=== PATIENT | male | born 1985 | race Caucasian/White ===

== ENCOUNTER 2018-12-06 17:09 | Observation (INO) | payer OTHER, SELFPAY ==
[2018-12-06] VITALS (8 sets, daily range): BP systolic 106–134; BP diastolic 54–78; PULSE 61–81; RESP 9–25; TEMP 36.3–36.4; O2SAT 96–100; BMI 29.8; BMI 30.5
--- NOTE | 2018-12-06 17:36 | DI.CT.S_ITS ---
PROCEDURE: CT ANGIO HEAD AND NECK INDICATIONS: stroke TECHNIQUE: Pre-contrast 4.5 mm thick sections acquired from the foramen magnum to the vertex. After the administration of intravenous contrast, 1 mm thick sections acquired from the aortic arch through the Darragh of Zheng. Post-contrast 4.5 mm thick sections then re-acquired from the foramen magnum to the vertex. 3-dimensional pzjpvbg-efirhmdhi-kidhzskzrm (MIP) and/or volume rendering reformats were acquired of the central intracranial vasculature and neck separately. COMPARISON: None. FINDINGS: Image quality: Excellent. BRAIN: CSF spaces: Ventricles are normal in size and shape. Basal cisterns are patent. No extra-axial fluid collections. Brain: No midline shift. No intracranial bleeds or masses. Cole-white matter interface appears intact. Skull and face: Calvarium and facial bones appear intact, without suspicious lesions. Orbits appear normal. Sinuses: Sinuses and mastoids are clear. HEAD CT ANGIOGRAPHY: No stenoses, aneurysms, or occlusions. No focal filling defects. NECK CT ANGIOGRAPHY: Carotid system: The great vessels demonstrate a conventional anatomy as they arise from the aortic arch. The origins of the common carotid arteries appear patent. The common carotid arteries demonstrate normal caliber and courses. The bifurcation regions are both widely patent. The internal carotid arteries demonstrate normal calibers and courses. Posterior circulation: The origins of the vertebral arteries both appear widely patent. The more superior extracranial portions of both vertebral arteries also demonstrate normal courses and calibers. They join to form a normal appearing basilar artery. Soft tissues: Visualized neck soft tissues demonstrate no suspicious abnormalities. Bones: No suspicious bony lesions. Visualized cervical spine appears normally aligned. IMPRESSION: 1. No evidence acute stroke, hemorrhage, or mass. Unremarkable head CT with and without contrast. 2. Unremarkable CTA head. 3. Unremarkable CTA neck. Comment: Findings were discussed with Dr. Biswas at the time of study dictation on 12/06/18 at 1826 hrs. Any quantitative measurements of stenosis were performed using NASCET criteria. Dictated by: Farooq Cross M.D. on 12/06/2018 at 18:21 Approved by: Farooq Cross M.D. on 12/06/2018 at 18:27
--- NOTE | 2018-12-06 17:36 | DI.CT.S_ITS ---
PROCEDURE: CT HEAD/BRAIN WO CON INDICATIONS: stroke TECHNIQUE: Noncontrast 4.5 mm thick angled axial sections acquired from the foramen magnum to the vertex, with coronal and sagittal reformats. For radiation dose reduction, the following was used: automated exposure control, adjustment of mA and/or kV according to patient size. COMPARISON: None. FINDINGS: Image quality: Excellent. CSF spaces: Basal cisterns are patent. No extra-axial fluid collections. Ventricles are normal in size and shape. Brain: No midline shift. No intracranial masses or hemorrhage. Cole-white matter interface is normal. Skull and face: Calvarium and visualized facial bones are intact, without suspicious lesions. Sinuses: Visualized sinuses and mastoids are clear. IMPRESSION: Unremarkable head CT with no evidence of acute stroke, hemorrhage, or mass. Comment: Findings were discussed with Dr. Biswas at the time of study dictation on 12/06/18 at 1959 hrs.. Dictated by: Farooq Cross M.D. on 12/06/2018 at 17:58 Approved by: Farooq Cross M.D. on 12/06/2018 at 18:00
[2018-12-06 17:41] LABS: Add Manual Diff / Slide Review NO; Basophils Absolute Auto 0 /uL (0-100); Basophils Percent Auto 0.6 % (0-2); Eosinophils Absolute Auto 100 /uL (0-450); Eosinophils Percent Auto 0.9 % (2-4); Hematocrit 42.8 % (41-53); Hemoglobin 14.5 g/dL (13.5-17.5); Lymphocytes Absolute Auto 2400 /uL (1100-4500); Lymphocytes Percent Auto 30.4 % (25-40); Mean Corpuscular HGB Conc 33.9 % (30-36); Mean Corpuscular Hemoglobin 29.7 PG (26-34); Mean Corpuscular Volume 87.6 fL (80-100); Monocytes Absolute Auto 800 /uL (0-900); Monocytes Percent Auto 10.3 % (3-14); Neutrophils Absolute Auto 4600 /uL (1500-7000); Neutrophils Percent Auto 57.8 % (50-75); Platelet Count 267 X10^3/uL (150-400); Red Blood Cell Count 4.89 X10^6/uL (4.5-5.9); Red Cell Distribution Width 13.5 % (11.6-14.8)
--- NOTE | 2018-12-06 17:43 | PC.NURSE ---
pt to ct with stroke RN on stretcher
--- NOTE | 2018-12-06 17:45 | PC.NURSE ---
Patient reports neurologic symptoms over the last two weeks including paresthesias. Today at 1400 began having right facial and arm numbness/weakness and difficulty with speech.The arm and speech have resolved however patient still has facial droop to right side of face and numbness to right side of face. He reports multiple cases of family history of unknown neurological/neuromuscular disorders. States one family member has some parkisonian like symptoms and can no longer walk, no diagnosis yet. States he has two family members with major balance issues as well. While shirt was removed I noticed patient had some odd muscle twitching/fasciculations to torso area. Does not appear like shivering and is involuntary in nature. He states that's been happening too the last few weeks. Also reports now he has a head to right temporal lobe, headaches are not common for him. Recently started on gabapentin.
--- NOTE | 2018-12-06 17:51 | PC.NURSE ---
pt back from CT
[2018-12-06 17:52] LABS: Alanine Aminotransferase 40 IU/L (21-72); Albumin 4.7 g/dL (3.5-5.0); Albumin Globulin Ratio 1.6 (1.0-2.8); Alkaline Phosphatase 51 U/L (38-126); Aspartate Aminotransferase 36 IU/L (17-59); BUN Creatinine Ratio 16.7 (6-22); Bilirubin Total 0.5 mg/dL (0.2-1.3); Blood Urea Nitrogen 15 mg/dL (9-20); Calcium 9.4 mg/dL (8.4-10.2); Carbon Dioxide 27 mmol/L (22-32); Chloride 102 mmol/L (98-107); Estimated Glomerular Filt Rate > 60.0 mL/min (>60); Globulin 2.9 g/dL (1.7-4.1); Glucose 82 mg/dL (70-100); HEMOLYSIS < 15 (0-50); Potassium 3.6 mmol/L (3.4-5.1); Sodium 141 mmol/L (137-145); Total Protein 7.6 g/dL (6.3-8.2)
--- NOTE | 2018-12-06 18:20 | DI.MRI.S_ITS ---
PROCEDURE: MR HEAD/BRAIN WO CON INDICATIONS: stroke symptoms TECHNIQUE: Noncontrast axial T1 spin echo, axial T2 fast spin echo, sagittal and axial FLAIR, coronal T2 fast spin echo, axial gradient echo, axial diffusion and ADC through the brain. COMPARISON: [facility], CT, CT HEAD/BRAIN WO CON, 12/06/2018, 17:37. FINDINGS: Image quality: Excellent. CSF Spaces: Basal cisterns are patent. No extra-axial fluid collections. Ventricles are normal in size and shape. Brain: No intracranial masses or hemorrhage. Cole/white matter interface is normal. Brainstem appears normal. Diffusion-weighted images demonstrate no acute ischemic insult. No chronic ischemic insults. Normal intravascular flow voids are present. Skull and face: Calvarium has normal marrow signal. Orbits appear normal. Sinuses: Sinuses and mastoids are clear. IMPRESSION: Negative brain MRI. No evidence of acute stroke, hemorrhage, or mass. Normal appearance of brain parenchyma. Dictated by: Farooq Cross M.D. on 12/06/2018 at 18:59 Approved by: Farooq Cross M.D. on 12/06/2018 at 19:01
[2018-12-06] MEDS: SODIUM CHLORIDE 0.9% 1,000 ML 1000 ML IV (18:23)
--- NOTE | 2018-12-06 18:39 | ED.NEUROSD ---
HPI - Neuro Symptoms/Deficit <Sarahi Biswas MD - Last Filed: 12/06/18 18:48> General Chief Complaint: Neuro Symptoms/Deficit Stated Complaint: RT SIDED FACIAL NUMBNESS Time Seen by Provider: 12/06/18 17:28 Source: patient Mode of arrival: ambulatory Limitations: no limitations History of Present Illness HPI Narrative: Patient comes emergency department via private vehicle after having sudden onset of right facial droop, numbness, and dysarthria around 1400 today. Patient states his symptoms have improved a bit since onset. He was seen at his primary care physician's office on the [facility], and his physician sent him to the emergency department for further evaluation. Patient states that he has been having right arm numbness and weakness for about the last 3 weeks and that this seems to be worsening. He states that he has never had any symptoms like this before. The patient is otherwise healthy. He has a family history of various neurologic disorders, including a maternal uncle with a Parkinson's like syndrome, and another maternal uncle who of some sort of neurologic condition in his 50s. The patient is not aware of any CVAs or MIs in the family at the ages of 20s or 30s. Patient denies any history of smoking. He states that he does not have diabetes or hypertension. No visual changes. No new weakness in the arms or legs that started today. No difficulty with gait. No vertigo. No nausea or vomiting. Patient has a mild headache in his temples. No recent head injury. No anticoagulation. No other complaints at this time. On Anticoagulants: No Related Data Home Medications Medication Instructions Recorded Confirmed Neurontin 300 mg PO ONCE HS 12/06/18 12/06/18 meloxicam 15 mg PO QAM 12/06/18 12/06/18 Allergies Allergy/AdvReac Type Severity Reaction Status Date / Time No Known Drug Allergies Allergy Verified 12/06/18 17:26 Review of Systems <Sarahi Biswas MD - Last Filed: 12/06/18 18:48> Constitutional Denies chills, Denies fever(s), Denies lethargy and Reports weakness (Right arm, right face) Eyes Denies change in vision, Denies eye discharge, Denies irritation and Denies loss of vision ENT Ears, Nose, Mouth, and Throat: Denies change in voice, Denies neck pain and Denies sore throat Cardiovascular Denies chest pain, Denies irregular heart rhythm, Denies lightheadedness, Denies palpitations, Denies dyspnea, Denies dyspnea on exertion and Denies orthopnea Respiratory Denies cough, Denies dyspnea, Denies dyspnea on exertion and Denies wheezing Gastrointestinal Gastrointestinal: Denies abdominal pain, Denies change in bowel habits, Denies diarrhea, Denies nausea and Denies vomiting Genitourinary Denies hematuria, Denies flank pain, Denies urinary incontinence and Denies urinary urgency Musculoskeletal Denies neck pain Integumentary/Breasts Denies pruritus, Denies erythema, Denies rash and Denies wounds Neurologic Denies confusion, Denies loss of vision, Reports sensory deficit (Right she) and Reports weakness (Right arm, right face) Psychiatric Denies anxiety, Denies confusion, Denies depression, Denies homicidal ideation and Denies suicidal ideation Endocrine Denies palpitations Hematologic/Lymphatic Denies easy bruising Allergic/Immunologic Denies wheezing PFSH <Sarahi Biswas MD - Last Filed: 12/06/18 18:48> Medical History (Updated 12/06/18 @ 23:18 by ROGERIO Gonzalez) Alcohol use (Acute) History of childhood obesity (Chronic) Nerve sheath tumor (Chronic) Surgical History No pertinent past surgical history (Acute) Family History (Updated 12/06/18 @ 23:20 by ROGERIO Gonzalez) Mother Vision abnormalities Grandmother Vision abnormalities Tremor Grandfather Memory deficit Tremor Gait abnormality Social History household members: none Smoking Status: Never smoker alcohol intake: current Family History (Updated 12/06/18 @ 23:20 by ROGERIO Gonzalez) Mother Vision abnormalities Grandmother Vision abnormalities Tremor Grandfather Memory deficit Tremor Gait abnormality Social History household members: none Smoking Status: Never smoker alcohol intake: current Exam <Sarahi Biswas MD - Last Filed: 12/06/18 18:48> Initial Vital Signs Initial Vital Signs: Vital Signs Temperature 97.5 F L 12/06/18 17:17 Pulse Rate 69 12/06/18 17:17 Respiratory Rate 18 12/06/18 17:17 Blood Pressure 126/78 12/06/18 17:17 Pulse Oximetry 100 12/06/18 17:17 Const General: cooperative and well developed Nutritional Appearance: well nourished Orientation: alert, awake, oriented x3 and not confused [facility] Head: normocephalic and atraumatic Ears: external ears normal Nose: external nose normal and No nasal discharge Face and sinus: face symmetric and No dry mucous membranes Mouth: oral mucosae normal and moist mucous membranes Teeth and gingiva: dentition normal Eyes General: appearance normal, both eyes and all related structures Eyelids: eyelids normal Conjunctivae: conjunctivae normal Sclera: sclerae normal Pupils: PERRL EOM: EOM intact bilaterally Neck Neck: normal visual inspection, trachea midline, No lymphadenopathy, No midline deformity and No JVD Lymphatic: No lymphedema Chest Chest: normal inspection of the chest Resp Effort & Inspection: normal respiratory effort, able to speak in complete sentences, no respiratory distress and no use of accessory muscles Auscultation: clear to auscultation bilaterally, no rales, no rhonchi and no wheezes Cardio Rate: regular rate Rhythm: regular rhythm Heart Sounds: no click, no gallops, no murmurs and no rubs Pulses: normal peripheral pulses GI Inspection: non-distended Palpation: soft, no hepatosplenomegaly, No guarding, No pulsatile mass and No tender Auscultation: normal bowel sounds Back/Spine/Pelvis Back: No CVA tenderness Cervical Spine: cervical ROM normal and No pain with cervical ROM Thoracic/Lumbar Spine: thoracic and lumbar spine normal to inspection Skin General: no rashes or lesions noted, No jaundice and No petechiae Neuro General: alert, awake, oriented x3 and gait normal Speech: speech normal Sensory Exam: no sensory deficits noted (Except for right cheek, as noted below.) Other: Cranial nerves 2-12 are intact, with the exception of very mild weakness of the patient's right upper lip. Sensory deficit noted only on the patient's right cheek, with mildly decreased sensation compared to left cheek. Patient has 5-strength in the right upper extremity compared with 5+ strength in the left upper extremity. Extrem General: full ROM, no clubbing, cyanosis or edema, no pedal edema and no calf tenderness Psych Appearance: well kempt Mental Status: mental status grossly normal Attitude: cooperative Thought Content: normal and suicidality Judgment: judgment good <Lux Gordon DO - Last Filed: 12/07/18 02:34> Initial Vital Signs Initial Vital Signs: Vital Signs Temperature 97.5 F L 12/06/18 17:17 Pulse Rate 69 12/06/18 17:17 Respiratory Rate 18 12/06/18 17:17 Blood Pressure 126/78 12/06/18 17:17 Pulse Oximetry 100 12/06/18 17:17 <Lux Gordon DO - Last Filed: 12/07/18 02:34> ABCD2 Age >= 60 years: no Initial BP. Either SBP >= 140 or DBP >= 90.: no Clinical features of the TIA: other symptoms Duration of symptoms: >= 60 minutes History of diabetes: no ABCD2 Score: 2 Course <Sarahi Biswas MD - Last Filed: 12/06/18 18:48> Course Narrative: Patient was evaluated immediately upon arrival in the emergency department by myself as a ?code stroke?. He was found to have an NIH stroke scale score 2 for his mild facial and right upper extremity weakness and his right cheek numbness. He was sent for a CT of the head without contrast, which was negative. His CTA of the head and neck was also unremarkable. An MRI was ordered to further evaluate the patient symptoms. EKG was unremarkable. Labs were also ordered. Patient remained stable throughout his stay in the emergency department up to the time of this dictation. He was signed out to Dr. Gordon at change of shift, pending labs, MRI and final disposition. Orders Ordered: ED Orders 12/06/18 17:36 CT angio head and neck Stat CT head/brain wo con Stat 12/06/18 18:20 MR head/brain wo con Stat 12/06/18 21:42 Consult to Discharge Planning Routine 12/07/18 06:00 EC echo doppler complete Routine Lipid Panel w/ VLDL Calc Routine Acetaminophen (Tylenol) 650 mg PO Q6HR PRN PRN Reason: Fever Aspirin (Aspirin Ec) 81 mg PO DAILY SALOME Discontinued Medications Aspirin (Aspirin Ec) 325 mg PO NOW ONE Stop: 12/06/18 18:50 Last Admin: 12/06/18 19:36 Dose: 325 mg Sodium Chloride (Normal Saline 0.9%) 1,000 mls @ 1,000 mls/hr IV BOLUS ONE Stop: 12/06/18 18:35 Last Infusion: 12/06/18 19:41 Dose: 0 mls/hr Admin: 12/06/18 18:23 Dose: 1,000 mls/hr Vital Signs - 8 hr 12/06/18 18:52 12/06/18 19:30 12/06/18 20:00 Temperature Pulse Rate 61 64 67 Respiratory Rate 25 H 14 18 Blood Pressure Blood Pressure [Right Arm] 114/70 115/74 110/70 Pulse Oximetry 100 100 100 12/06/18 21:00 12/06/18 21:53 12/07/18 00:05 Temperature 97.3 F L 98.5 F Pulse Rate 62 81 53 L Respiratory Rate 19 18 16 Blood Pressure 134/54 L 110/69 Blood Pressure [Right Arm] 106/69 Pulse Oximetry 100 96 100 <Lux Gordon, DO - Last Filed: 12/07/18 02:34> Course Narrative: Patient received in sign-out from Dr. Biswas, I performed an independent history and physical. Patient asymptomatic on my exam with current Stroke Scale of 0. Upon receipt of MRI I contacted [facility] stroke to discuss the symptoms and they quickly recommend observation with a TIA workup including telemetry and an echocardiogram. Patient understands these recommendations and is in agreement with the plan Orders Ordered: ED Orders 12/06/18 17:36 CT angio head and neck Stat CT head/brain wo con Stat 12/06/18 18:20 MR head/brain wo con Stat 12/06/18 21:42 Consult to Discharge Planning Routine 12/07/18 06:00 EC echo doppler complete Routine Lipid Panel w/ VLDL Calc Routine Acetaminophen (Tylenol) 650 mg PO Q6HR PRN PRN Reason: Fever Aspirin (Aspirin Ec) 81 mg PO DAILY SALOME Discontinued Medications Aspirin (Aspirin Ec) 325 mg PO NOW ONE Stop: 12/06/18 18:50 Last Admin: 12/06/18 19:36 Dose: 325 mg Sodium Chloride (Normal Saline 0.9%) 1,000 mls @ 1,000 mls/hr IV BOLUS ONE Stop: 12/06/18 18:35 Last Infusion: 12/06/18 19:41 Dose: 0 mls/hr Admin: 12/06/18 18:23 Dose: 1,000 mls/hr Consultations Consultation #1: Stroke Neurologist at [facility] contacted. History, physical, labs, and imaging discussed. She is quick to recommend observation for TIA workup Consultation #2: hospitalist is happy to accept Vital Signs - 8 hr 12/06/18 18:52 12/06/18 19:30 12/06/18 20:00 Temperature Pulse Rate 61 64 67 Respiratory Rate 25 H 14 18 Blood Pressure Blood Pressure [Right Arm] 114/70 115/74 110/70 Pulse Oximetry 100 100 100 12/06/18 21:00 12/06/18 21:53 12/07/18 00:05 Temperature 97.3 F L 98.5 F Pulse Rate 62 81 53 L Respiratory Rate 19 18 16 Blood Pressure 134/54 L 110/69 Blood Pressure [Right Arm] 106/69 Pulse Oximetry 100 96 100 MDM - Neuro Symptoms/Deficit <Sarahi Biswas MD - Last Filed: 12/06/18 18:48> Lab Data Result diagrams: 12/06/18 17:30 12/06/18 17:30 Lab Results 12/06/18 12/06/18 12/06/18 Range/Units 17:30 17:30 17:30 WBC 8.0 (4.5-11.0) X10^3/uL RBC 4.89 (4.5-5.9) X10^6/uL Hgb 14.5 (13.5-17.5) g/dL Hct 42.8 (41-53) % MCV 87.6 (80-100) fL MCH 29.7 (26-34) PG MCHC 33.9 (30-36) % RDW 13.5 (11.6-14.8) % Plt Count 267 (150-400) X10^3/uL Neut % (Auto) 57.8 (50-75) % Lymph % (Auto) 30.4 (25-40) % [place] % (Auto) 10.3 (3-14) % Eos % (Auto) 0.9 L (2-4) % Baso % (Auto) 0.6 (0-2) % Neut # (Auto) 4600 (8606-0235) /uL Lymph # (Auto) 2400 (6495-4792) /uL [place] # (Auto) 800 (0-900) /uL Eos # (Auto) 100 (0-450) /uL Baso # (Auto) 0 (0-100) /uL Sodium 141 (137-145) mmol/L Potassium 3.6 (3.4-5.1) mmol/L Chloride 102 (98-107) mmol/L Carbon Dioxide 27 (22-32) mmol/L BUN 15 (9-20) mg/dL Creatinine 0.90 (0.66-1.25) mg/dL Estimated GFR > 60.0 (>60) mL/min BUN/Creatinine Ratio 16.7 (6-22) Glucose 82 (70-100) mg/dL Hemoglobin A1c 4.7 (4.0-6.0) % Calcium 9.4 (8.4-10.2) mg/dL Total Bilirubin 0.5 (0.2-1.3) mg/dL AST 36 (17-59) IU/L ALT 40 (21-72) IU/L Alkaline Phosphatase 51 (38-126) U/L Total Protein 7.6 (6.3-8.2) g/dL Albumin 4.7 (3.5-5.0) g/dL Globulin 2.9 (1.7-4.1) g/dL Albumin/Globulin Ratio 1.6 (1.0-2.8) <Lux Gordon, DO - Last Filed: 12/07/18 02:34> Lab Data Lab Results 12/06/18 12/06/18 12/06/18 Range/Units 17:30 17:30 17:30 WBC 8.0 (4.5-11.0) X10^3/uL RBC 4.89 (4.5-5.9) X10^6/uL Hgb 14.5 (13.5-17.5) g/dL Hct 42.8 (41-53) % MCV 87.6 (80-100) fL MCH 29.7 (26-34) PG MCHC 33.9 (30-36) % RDW 13.5 (11.6-14.8) % Plt Count 267 (150-400) X10^3/uL Neut % (Auto) 57.8 (50-75) % Lymph % (Auto) 30.4 (25-40) % [place] % (Auto) 10.3 (3-14) % Eos % (Auto) 0.9 L (2-4) % Baso % (Auto) 0.6 (0-2) % Neut # (Auto) 4600 (9414-2921) /uL Lymph # (Auto) 2400 (5767-4011) /uL [place] # (Auto) 800 (0-900) /uL Eos # (Auto) 100 (0-450) /uL Baso # (Auto) 0 (0-100) /uL Sodium 141 (137-145) mmol/L Potassium 3.6 (3.4-5.1) mmol/L Chloride 102 (98-107) mmol/L Carbon Dioxide 27 (22-32) mmol/L BUN 15 (9-20) mg/dL Creatinine 0.90 (0.66-1.25) mg/dL Estimated GFR > 60.0 (>60) mL/min BUN/Creatinine Ratio 16.7 (6-22) Glucose 82 (70-100) mg/dL Hemoglobin A1c 4.7 (4.0-6.0) % Calcium 9.4 (8.4-10.2) mg/dL Total Bilirubin 0.5 (0.2-1.3) mg/dL AST 36 (17-59) IU/L ALT 40 (21-72) IU/L Alkaline Phosphatase 51 (38-126) U/L Total Protein 7.6 (6.3-8.2) g/dL Albumin 4.7 (3.5-5.0) g/dL Globulin 2.9 (1.7-4.1) g/dL Albumin/Globulin Ratio 1.6 (1.0-2.8) Discharge Plan Departure Patient Disposition: Admitted as Observation Clinical Impression: Brain TIA Discharge Date/Time: 12/06/18 21:31 Interventions: ED Discharge Assessment Last Done: 12/06/18 21:31 Admit Date/Time: 12/06/18 20:51 Admit Provider: Obdulio Ramon
--- NOTE | 2018-12-06 18:49 | ED_ITS ---
HPI - Neuro Symptoms/Deficit <Sarahi Biswas MD - Last Filed: 12/06/18 18:48> General Chief Complaint: Neuro Symptoms/Deficit Stated Complaint: RT SIDED FACIAL NUMBNESS Time Seen by Provider: 12/06/18 17:28 Source: patient Mode of arrival: ambulatory Limitations: no limitations History of Present Illness HPI Narrative: Patient comes emergency department via private vehicle after having sudden onset of right facial droop, numbness, and dysarthria around 1400 today. Patient states his symptoms have improved a bit since onset. He was seen at his primary care physician's office on the [facility], and his physician sent him to the emergency department for further evaluation. Patient states that he has been having right arm numbness and weakness for about the last 3 weeks and that this seems to be worsening. He states that he has never had any symptoms like this before. The patient is otherwise healthy. He has a family history of various neurologic disorders, including a maternal uncle with a Parkinson's like syndrome, and another maternal uncle who of some sort of neurologic condition in his 50s. The patient is not aware of any CVAs or MIs in the family at the ages of 20s or 30s. Patient denies any history of smoking. He states that he does not have diabetes or hypertension. No visual changes. No new weakness in the arms or legs that started today. No difficulty with gait. No vertigo. No nausea or vomiting. Patient has a mild headache in his temples. No recent head injury. No anticoagulation. No other complaints at this time. On Anticoagulants: No Related Data Home Medications Medication Instructions Recorded Confirmed Neurontin 300 mg PO ONCE HS 12/06/18 12/06/18 meloxicam 15 mg PO QAM 12/06/18 12/06/18 Allergies Allergy/AdvReac Type Severity Reaction Status Date / Time No Known Drug Allergies Allergy Verified 12/06/18 17:26 Review of Systems <Sarahi Biswas MD - Last Filed: 12/06/18 18:48> Constitutional Denies chills, Denies fever(s), Denies lethargy and Reports weakness (Right arm, right face) Eyes Denies change in vision, Denies eye discharge, Denies irritation and Denies loss of vision ENT Ears, Nose, Mouth, and Throat: Denies change in voice, Denies neck pain and Denies sore throat Cardiovascular Denies chest pain, Denies irregular heart rhythm, Denies lightheadedness, Denies palpitations, Denies dyspnea, Denies dyspnea on exertion and Denies orthopnea Respiratory Denies cough, Denies dyspnea, Denies dyspnea on exertion and Denies wheezing Gastrointestinal Gastrointestinal: Denies abdominal pain, Denies change in bowel habits, Denies d iarrhea, Denies nausea and Denies vomiting Genitourinary Denies hematuria, Denies flank pain, Denies urinary incontinence and Denies urinary urgency Musculoskeletal Denies neck pain Integumentary/Breasts Denies pruritus, Denies erythema, Denies rash and Denies wounds Neurologic Denies confusion, Denies loss of vision, Reports sensory deficit (Right she) and Reports weakness (Right arm, right face) Psychiatric Denies anxiety, Denies confusion, Denies depression, Denies homicidal ideation and Denies suicidal ideation Endocrine Denies palpitations Hematologic/Lymphatic Denies easy bruising Allergic/Immunologic Denies wheezing PFSH <Sarahi Biswas MD - Last Filed: 12/06/18 18:48> Medical History (Updated 12/06/18 @ 23:18 by ROGERIO Gonzalez) Alcohol use (Acute) History of childhood obesity (Chronic) Nerve sheath tumor (Chronic) Surgical History No pertinent past surgical history (Acute) Family History (Updated 12/06/18 @ 23:20 by ROGERIO Gonzalez) Mother Vision abnormalities Grandmother Vision abnormalities Tremor Grandfather Memory deficit Tremor Gait abnormality Social History household members: none Smoking Status: Never smoker alcohol intake: current Family History (Updated 12/06/18 @ 23:20 by ROGERIO Gonzalez) Mother Vision abnormalities Grandmother Vision abnormalities Tremor Grandfather Memory deficit Tremor Gait abnormality Social History household members: none Smoking Status: Never smoker alcohol intake: current Exam <Sarahi Biswas MD - Last Filed: 12/06/18 18:48> Initial Vital Signs Initial Vital Signs: Vital Signs Temperature 97.5 F L 12/06/18 17:17 Pulse Rate 69 12/06/18 17:17 Respiratory Rate 18 12/06/18 17:17 Blood Pressure 126/78 12/06/18 17:17 Pulse Oximetry 100 12/06/18 17:17 Const General: cooperative and well developed Nutritional Appearance: well nourished Orientation: alert, awake, oriented x3 and not confused [facility] Head: normocephalic and atraumatic Ears: external ears normal Nose: external nose normal and No nasal discharge Face and sinus: face symmetric and No dry mucous membranes Mouth: oral mucosae normal and moist mucous membranes Teeth and gingiva: dentition normal Eyes General: appearance normal, both eyes and all related structures Eyelids: eyelids normal Conjunctivae: conjunctivae normal Sclera: sclerae normal Pupils: PERRL EOM: EOM intact bilaterally Neck Neck: normal visual inspection, trachea midline, No lymphadenopathy, No midline deformity and No JVD Lymphatic: No lymphedema Chest Chest: normal inspection of the chest Resp Effort & Inspection: normal respiratory effort, able to speak in complete sentences, no respiratory distress and no use of accessory muscles Auscultation: clear to auscultation bilaterally, no rales, no rhonchi and no wheezes Cardio Rate: regular rate Rhythm: regular rhythm Heart Sounds: no click, no gallops, no murmurs and no rubs Pulses: normal peripheral pulses GI Inspection: non-distended Palpation: soft, no hepatosplenomegaly, No guarding, No pulsatile mass and No tender Auscultation: normal bowel sounds Back/Spine/Pelvis Back: No CVA tenderness Cervical Spine: cervical ROM normal and No pain with cervical ROM Thoracic/Lumbar Spine: thoracic and lumbar spine normal to inspection Skin General: no rashes or lesions noted, No jaundice and No petechiae Neuro General: alert, awake, oriented x3 and gait normal Speech: speech normal Sensory Exam: no sensory deficits noted (Except for right cheek, as noted below.) Other: Cranial nerves 2-12 are intact, with the exception of very mild weakness of the patient's right upper lip. Sensory deficit noted only on the patient's right cheek, with mildly decreased sensation compared to left cheek. Patient has 5-strength in the right upper extremity compared with 5+ strength in the left upper extremity. Extrem General: full ROM, no clubbing, cyanosis or edema, no pedal edema and no calf tenderness Psych Appearance: well kempt Mental Status: mental status grossly normal Attitude: cooperative Thought Content: normal and suicidality Judgment: judgment good <Lux Gordon DO - Last Filed: 12/07/18 02:34> Initial Vital Signs Initial Vital Signs: Vital Signs Temperature 97.5 F L 12/06/18 17:17 Pulse Rate 69 12/06/18 17:17 Respiratory Rate 18 12/06/18 17:17 Blood Pressure 126/78 12/06/18 17:17 Pulse Oximetry 100 12/06/18 17:17 <Lux Gordon DO - Last Filed: 12/07/18 02:34> ABCD2 Age >= 60 years: no Initial BP. Either SBP >= 140 or DBP >= 90.: no Clinical features of the TIA: other symptoms Duration of symptoms: >= 60 minutes History of diabetes: no ABCD2 Score: 2 Course <Sarahi Biswas MD - Last Filed: 12/06/18 18:48> Course Narrative: Patient was evaluated immediately upon arrival in the emergency department by myself as a ?code stroke?. He was found to have an NIH stroke scale score 2 for his mild facial and right upper extremity weakness and his right cheek numbness. He was sent for a CT of the head without contrast, wh ich was negative. His CTA of the head and neck was also unremarkable. An MRI was ordered to further evaluate the patient symptoms. EKG was unremarkable. Labs were also ordered. Patient remained stable throughout his stay in the emergency department up to the time of this dictation. He was signed out to Dr. Gordon at change of shift, pending labs, MRI and final disposition. Orders Ordered: ED Orders 12/06/18 17:36 CT angio head and neck Stat CT head/brain wo con Stat 12/06/18 18:20 MR head/brain wo con Stat 12/06/18 21:42 Consult to Discharge Planning Routine 12/07/18 06:00 EC echo doppler complete Routine Lipid Panel w/ VLDL Calc Routine Acetaminophen (Tylenol) 650 mg PO Q6HR PRN PRN Reason: Fever Aspirin (Aspirin Ec) 81 mg PO DAILY SALOME Discontinued Medications Aspirin (Aspirin Ec) 325 mg PO NOW ONE Stop: 12/06/18 18:50 Last Admin: 12/06/18 19:36 Dose: 325 mg Sodium Chloride (Normal Saline 0.9%) 1,000 mls @ 1,000 mls/hr IV BOLUS ONE Stop: 12/06/18 18:35 Last Infusion: 12/06/18 19:41 Dose: 0 mls/hr Admin: 12/06/18 18:23 Dose: 1,000 mls/hr Vital Signs - 8 hr 12/06/18 18:52 12/06/18 19:30 12/06/18 20:00 Temperature Pulse Rate 61 64 67 Respiratory Rate 25 H 14 18 Blood Pressure Blood Pressure [Right Arm] 114/70 115/74 110/70 Pulse Oximetry 100 100 100 12/06/18 21:00 12/06/18 21:53 12/07/18 00:05 Temperature 97.3 F L 98.5 F Pulse Rate 62 81 53 L Respiratory Rate 19 18 16 Blood Pressure 134/54 L 110/69 Blood Pressure [Right Arm] 106/69 Pulse Oximetry 100 96 100 <Lux Gordon, DO - Last Filed: 12/07/18 02:34> Course Narrative: Patient received in sign-out from Dr. Biswas, I performed an independent history and physical. Patient asymptomatic on my exam with current Stroke Scale of 0. Upon receipt of MRI I contacted [facility] stroke to discuss the symptoms and they quickly recommend observation with a TIA workup including telemetry and an echocardiogram. Patient understands these recommendations and is in agreement with the plan Orders Ordered: ED Orders 12/06/18 17:36 CT angio head and neck Stat CT head/brain wo con Stat 12/06/18 18:20 MR head/brain wo con Stat 12/06/18 21:42 Consult to Discharge Planning Routine 12/07/18 06:00 EC echo doppler complete Routine Lipid Panel w/ VLDL Calc Routine Acetaminophen (Tylenol) 650 mg PO Q6HR PRN PRN Reason: Fever Aspirin (Aspirin Ec) 81 mg PO DAILY SALOME Discontinued Medications Aspirin (Aspirin Ec) 325 mg PO NOW ONE Stop: 12/06/18 18:50 Last Admin: 12/06/18 19:36 Dose: 325 mg Sodium Chloride (Normal Saline 0.9%) 1,000 mls @ 1,000 mls/hr IV BOLUS ONE Stop: 12/06/18 18:35 Last Infusion: 12/06/18 19:41 Dose: 0 mls/hr Admin: 12/06/18 18:23 Dose: 1,000 mls/hr Consultations Consultation #1: Stroke Neurologist at [facility] contacted. History, physical, labs, and imaging discussed. She is quick to recommend observation for TIA workup Consultation #2: hospitalist is happy to accept Vital Signs - 8 hr 12/06/18 18:52 12/06/18 19:30 12/06/18 20:00 Temperature Pulse Rate 61 64 67 Respiratory Rate 25 H 14 18 Blood Pressure Blood Pressure [Right Arm] 114/70 115/74 110/70 Pulse Oximetry 100 100 100 12/06/18 21:00 12/06/18 21:53 12/07/18 00:05 Temperature 97.3 F L 98.5 F Pulse Rate 62 81 53 L Respiratory Rate 19 18 16 Blood Pressure 134/54 L 110/69 Blood Pressure [Right Arm] 106/69 Pulse Oximetry 100 96 100 MDM - Neuro Symptoms/Deficit <Sarahi Biswas MD - Last Filed: 12/06/18 18:48> Lab Data Result diagrams: 12/06/18 17:30 12/06/18 17:30 Lab Results 12/06/18 12/06/18 12/06/18 Range/Units 17:30 17:30 17:30 WBC 8.0 (4.5-11.0) X10^3/uL RBC 4.89 (4.5-5.9) X10^6/uL Hgb 14.5 (13.5-17.5) g/dL Hct 42.8 (41-53) % MCV 87.6 (80-100) fL MCH 29.7 (26-34) PG MCHC 33.9 (30-36) % RDW 13.5 (11.6-14.8) % Plt Count 267 (150-400) X10^3/uL Neut % (Auto) 57.8 (50-75) % Lymph % (Auto) 30.4 (25-40) % Hudson % (Auto) 10.3 (3-14) % Eos % (Auto) 0.9 L (2-4) % Baso % (Auto) 0.6 (0-2) % Neut # (Auto) 4600 (2566-0108) /uL Lymph # (Auto) 2400 (7112-2552) /uL Hudson # (Auto) 800 (0-900) /uL Eos # (Auto) 100 (0-450) /uL Baso # (Auto) 0 (0-100) /uL Sodium 141 (137-145) mmol/L Potassium 3.6 (3.4-5.1) mmol/L Chloride 102 (98-107) mmol/L Carbon Dioxide 27 (22-32) mmol/L BUN 15 (9-20) mg/dL Creatinine 0.90 (0.66-1.25) mg/dL Estimated GFR > 60.0 (>60) mL/min BUN/Creatinine Ratio 16.7 (6-22) Glucose 82 (70-100) mg/dL Hemoglobin A1c 4.7 (4.0-6.0) % Calcium 9.4 (8.4-10.2) mg/dL Total Bilirubin 0.5 (0.2-1.3) mg/dL AST 36 (17-59) IU/L ALT 40 (21-72) IU/L Alkaline Phosphatase 51 (38-126) U/L Total Protein 7.6 (6.3-8.2) g/dL Albumin 4.7 (3.5-5.0) g/dL Globulin 2.9 (1.7-4.1) g/dL Albumin/Globulin Ratio 1.6 (1.0-2.8) <Lux Gordon, DO - Last Filed: 12/07/18 02:34> Lab Data Lab Results 12/06/18 12/06/18 12/06/18 Range/Units 17:30 17:30 17:30 WBC 8.0 (4.5-11.0) X10^3/uL RBC 4.89 (4.5-5.9) X10^6/uL Hgb 14.5 (13.5-17.5) g/dL Hct 42.8 (41-53) % MCV 87.6 (80-100) fL MCH 29.7 (26-34) PG MCHC 33.9 (30-36) % RDW 13.5 (11.6-14.8) % Plt Count 267 (150-400) X10^3/uL Neut % (Auto) 57.8 (50-75) % Lymph % (Auto) 30.4 (25-40) % Hudson % (Auto) 10.3 (3-14) % Eos % (Auto) 0.9 L (2-4) % Baso % (Auto) 0.6 (0-2) % Neut # (Auto) 4600 (7599-2352) /uL Lymph # (Auto) 2400 (4551-3866) /uL Hudson # (Auto) 800 (0-900) /uL Eos # (Auto) 100 (0-450) /uL Baso # (Auto) 0 (0-100) /uL Sodium 141 (137-145) mmol/L Potassium 3.6 (3.4-5.1) mmol/L Chloride 102 (98-107) mmol/L Carbon Dioxide 27 (22-32) mmol/L BUN 15 (9-20) mg/dL Creatinine 0.90 (0.66-1.25) mg/dL Estimated GFR > 60.0 (>60) mL/min BUN/Creatinine Ratio 16.7 (6-22) Glucose 82 (70-100) mg/dL Hemoglobin A1c 4.7 (4.0-6.0) % Calcium 9.4 (8.4-10.2) mg/dL Total Bilirubin 0.5 (0.2-1.3) mg/dL AST 36 (17-59) IU/L ALT 40 (21-72) IU/L Alkaline Phosphatase 51 (38-126) U/L Total Protein 7.6 (6.3-8.2) g/dL Albumin 4.7 (3.5-5.0) g/dL Globulin 2.9 (1.7-4.1) g/dL Albumin/Globulin Ratio 1.6 (1.0-2.8) Discharge Plan Departure Patient Disposition: Admitted as Observation Clinical Impression: Brain TIA Discharge Date/Time: 12/06/18 21:31 Interventions: ED Discharge Assessment Last Done: 12/06/18 21:31 Admit Date/Time: 12/06/18 20:51 Admit Provider: Obdulio Ramon
--- NOTE | 2018-12-06 19:17 | PC.NURSE ---
Patient with right sided facial droop and some dysphagia earlier. Automatic fail for swallow screen.
[2018-12-06] MEDS: ASPIRIN EC 325 MG TABLET PO (19:36)
--- NOTE | 2018-12-06 19:51 | PC.NURSE ---
Patient with resolved right facial droop. Patient passed swallow test and is sipping water without complications. Patient given PO ASA as ordered by MD. Pt resting quietly, denies needs at this time.
--- NOTE | 2018-12-06 21:32 | PM.HP.1 ---
History of Present Illness Date Patient Seen: 12/06/18 Time Patient Seen: 22:10 Chief complaint: RT SIDED FACIAL NUMBNESS Narrative: The patient is 33 year old male Earlier in the day patient was seen by a physician on the [facility] who recommended further evaluation immediate neurological evaluation in the ED. Patient reports experiencing sudden onset (1400 on 12/06/18) of a right facial droop, numbness, and dysarthria. Associated symptoms include headache and RUE numbness and weakness. RUE changes noted to be present for a period of 3 weeks, progressively worsening. Patient reports sitting and working at a computer at approximately 2:00 p.m. on 12/06/2018. At that time he has noticed right-sided tingling and decrease of sensation. Over the next hour and a half numbness and tingling have progressed and have become bothersome. Reports difficulty with smiling, which she attributes to right-sided weakness. [place] as if his face had a right-sided droop. Reports change in cognition, specifically notes difficulty of thinking what he wants to say and word-finding. Also notes slurred speech. Reports tightness in his throat and difficulty with swallowing. Notes taking a drink in having difficulty managing contents. Denies wheezing and stridor. At time of the event denies presence of a headache. No change in vision, double vision, or scotoma. Denies chest pain, palpitations, dizziness, lightheadedness, or shortness of breath. Denies difficulty with balance or trouble walking; however, states that he has failed balance test when seen by the physician at the [facility]. Patient notes leaning to the right when he was asked to stand upright with eyes closed. On his way to the ED patient reports developing a headache. Headache was localized to the right frontal aspect of the head. There is no radiation behind the eye or to the posterior aspect of the occiput. No similar events in the past. Patient has been suffering from right upper extremity pain and paresthesia over the past 3 weeks. At time of the event he does not endorse presence of pain or paresthesia of right upper extremity. Aforementioned neurological symptoms have resolved between 3-4 hours by report. Patient recently started on gabapentin and meloxicam. Has taken his 1st dose of gabapentin prior to bedtime on 12/05/2018. Reports drinking 1-2 beers daily. Last drink on the evening of 12/05/2018. Denies current or prior history of tobacco, marijuana, or recreational drug use. Denies prior head injury. Denies history of seizures. Denies history of migraines, chronic headaches or vertigo. Patient reports being obese majority of his life until 10 years ago, at that time notes 100 lb weight loss in 9 months. Notes lifelong episodes of symptomatic hypoglycemia, which he manages with routine dietary regime. Denies history of hypertension, dyslipidemia, heart disease, neurological disorders, thyroid problems, or thrombosis. Family history is significant for neurological disease in multiple family members with symptoms of gait abnormality, memory loss, tremor (onset in the 50s). He notes that there was no definitive diagnosis to date of potential neurological disorder. No definitive diagnosis of MS or Parkinson's. In fact for members of his family are undergoing a research study and currently undergoing genetic testing. In regard to right upper extremity paresthesia. Patient reports prior history of nerve she tumor resection, 2016. Report developing intermittent arm discomfort in shooting pain 5-6 months after surgical procedure. He has not taken any medications or had any interventions for this phenomenon. Three weeks ago patient was working on breaking up some rocks. Specifically reports using 45 lb metal pole and working 4 hours, fairly continuously, to breakup the rocks. Reports presence of muscle fatigue the following day, worse in the right upper extremity than the left. Within 48 hours reports having intermittent periods of paresthesia, weakness, and fairly consistent degree of discomfort which has persisted for the past 3 weeks. The aforementioned anomaly is noted to be positional. Worse when patient lays on his back and goes completely away when sitting upright. Patient notes pain to be worse at night. Two days ago he was seen and evaluated by a primary care physician. At that time he was prescribed meloxicam and gabapentin. ED presentation and work-up WBC 8.0 Hgb 14.5 Plt 267 Na 141 K 3.6 Cl 102 Ca 9.4 Alb 4.7 Glu 82 CO2 27 BUN 15 Cr 0.9 BUN/Cr 16.7 T. Bili 0.5 AST 36 ALT [address] Head, unremarkable for acute intracranial masses or hemorrhage. CTA Head, unremarkable - No evidence of acute stroke, hemorrhage or mass. No stenoses, aneurysms, or occlusion. No focal filling defects. CTA Neck, unremarkable Carotid system: The great vessels demonstrate a conventional anatomy as they arise from the aortic arch. The origins of the common carotid arteries appear patent. The common carotid arteries demonstrate normal caliber and courses. The bifurcation regions are both widely patent. The internal carotid arteries demonstrate normal calibers and courses. Posterior circulation: The origins of the vertebral arteries both appear widely patent. The more superior extracranial portions of both vertebral arteries also demonstrate normal courses and calibers. They join to form a normal appearing basilar artery. Brain MRI, negative brain MRI, no evidence of acute stroke, hemorrhage, or mass; normal appearance of brain parenchyma. Patient History Medical History (Updated 12/06/18 @ 23:18 by ROGERIO Gonzalez) Alcohol use (Acute) History of childhood obesity (Chronic) Nerve sheath tumor (Chronic) Surgical History No pertinent past surgical history (Acute) Family History (Updated 12/06/18 @ 23:20 by ROGERIO Gonzalez) Mother Vision abnormalities Grandmother Vision abnormalities Tremor Grandfather Memory deficit Tremor Gait abnormality Social History household members: none Smoking Status: Never smoker alcohol intake: current Family & Social History Family History (Updated 12/06/18 @ 23:20 by ROGERIO Gonzalez) Mother Vision abnormalities Grandmother Vision abnormalities Tremor Grandfather Memory deficit Tremor Gait abnormality Safety & Behavioral: Feels Safe in Current Yes Environment Lives in [place]. Works at the [employer]. Denies prior or current history of tobacco, marijuana, or recreational drug use. Endorses use of alcohol, specifically 1-2 beers daily for 13 years. Denies history of heavy EtOH consumption. Does not admit to any routine exercise. Howevever, does jog 10-15 minutes while walking the dog daily. Meds Home Medications Medication Instructions Recorded Confirmed Type Neurontin 300 mg PO ONCE HS 12/06/18 12/06/18 History meloxicam 15 mg PO QAM 12/06/18 12/06/18 History Allergies Allergy/AdvReac Type Severity Reaction Status Date / Time No Known Drug Allergies Allergy Verified 12/06/18 17:26 Review of Systems Review of Systems All systems reviewed & are unremarkable except as noted in HPI and below Exam Vital Signs (past 8 hours): - 12/06/18 17:17 12/06/18 17:54 12/06/18 17:57 Temperature 97.5 F L Pulse Rate 69 69 80 Respiratory Rate 18 9 L 13 Blood Pressure 126/78 Blood Pressure [Right Arm] 126/72 126/72 Pulse Oximetry 100 98 98 12/06/18 18:52 12/06/18 19:30 12/06/18 20:00 Temperature Pulse Rate 61 64 67 Respiratory Rate 25 H 14 18 Blood Pressure Blood Pressure [Right Arm] 114/70 115/74 110/70 Pulse Oximetry 100 100 100 12/06/18 21:00 Temperature Pulse Rate 62 Respiratory Rate 19 Blood Pressure Blood Pressure [Right Arm] 106/69 Pulse Oximetry 100 Oxygen Delivery Method Room Air Narrative Exam Narrative: Constitutional: NAD Neurologic: AOx3, no focal neurological deficits, no facial asymmetry or unilateral weakness NIH stroke scale score of 2 obtained (sensation, RLE mild drift). see NIHSS scoring below Head: NC, AT Eyes: PERRL, EOMI, Ears: external ears normal, no otorrhea Nose: external nose normal, no rhinorrhea or epistaxis Throat: MMM, oropharynx w/o exudate Neck: no masses, lymphadenopathy, or JVD Chest / Respiratory: equal chest rise, unlabored respiratory effort, no tachypnea, CTAB Heart / CV: S1S2, no murmur Abdomen / GI: round, NT, ND, + BS, no organomegaly : no suprapubic tenderness, no CVA Peripheral / Vascular: warm to touch, DP and PT pulses palpable, no edema Musc: full ROM of upper and lower extremities, adequate muscle tone and bulk RLE mild weakness RUE weak asking to push against resistance, however no weakness noted when asked to pull against resistance Skin: no ecchymosis or suspicious lesions / ulcers NIH stroke scale SCORE OF 2 Alert and keenly responsive 0 Answers month and age correctly 0 Blanks eyes and squeezes hands, both tasks correctly 0 Horizontal extraocular movements normal 0 Visual robles no loss 0 Facial palsy normal symmetry 0 Left arm no drift 0 Right arm no drift 0 Left leg no drift 0 Right leg, drift but does not head bed 1+ No limb ataxia 0 Sensation Gujl-gq-[id number] loss 1+ No aphasia 0 No dysarthria 0 No extinction and inattention 0 Objective Labs Result Diagrams: 12/06/18 17:30 12/06/18 17:30 Labs: Laboratory Results - last 24 hr 12/06/18 12/06/18 17:30 17:30 WBC 8.0 RBC 4.89 Hgb 14.5 Hct 42.8 MCV 87.6 MCH 29.7 MCHC 33.9 RDW 13.5 Plt Count 267 Neut % (Auto) 57.8 Lymph % (Auto) 30.4 [place] % (Auto) 10.3 Eos % (Auto) 0.9 L Baso % (Auto) 0.6 Neut # (Auto) 4600 Lymph # (Auto) 2400 [place] # (Auto) 800 Eos # (Auto) 100 Baso # (Auto) 0 Sodium 141 Potassium 3.6 Chloride 102 Carbon Dioxide 27 BUN 15 Creatinine 0.90 Estimated GFR > 60.0 BUN/Creatinine Ratio 16.7 Glucose 82 Calcium 9.4 Total Bilirubin 0.5 AST 36 ALT 40 Alkaline Phosphatase 51 Total Protein 7.6 Albumin 4.7 Globulin 2.9 Albumin/Globulin Ratio 1.6 Assessment & Plan Assessment & Plan narrative: TIA, acute, present on admission, active - labs unremarkable - CT head, CTA head / neck, and MRI unremarkable - Echo w/ bubble study to assess PFO / cardiac shunting in am - ASA 325 received in ED. Started on ASA 81 mg QD, starting 12/07/18 - Risk Stratify: A1C, FLP (goal LDL < 70) - Received 1L NS bolus in ED. No need for further hydration. - NIHSS on presentation to unit 0. Continue NIHSS QShift, asked RN's to report change in NIHSS >/2 - Neuro checks per protocol. Telemetry x24 hours. Supplemental O2 prn, - Passes swallow screen, ok to advance diet to cardiac. - Consult case management, d/c planning - Stroke education - DVT prophylaxis: SCDs Right upper extremity paresthesia, acute, present on admission, active - nerve impingement vs cervical radiculopathy - consider MRI w/wo contrast - hold gabapentin until TIA work-up completed Full code. Home medications reviewed and reconciled accordingly. VTE prophylaxis, SCDs.
[2018-12-06 22:26] LABS: Hemoglobin A1C% w Est Avg Glu 4.7 % (4.0-6.0)
[2018-12-07 00:05] VITALS: BP 110/69; PULSE 53; RESP 16; TEMP 36.9; O2SAT 100
--- NOTE | 2018-12-07 03:21 | PC.NURSE ---
Pt has VSS, but sinus poal in the 40's. Lung sounds clear. Pt's NIH score was 0. Pt was educated about the use of SCD's but refused to wear them.
[2018-12-07 06:00] VITALS: BP 109/61; PULSE 72; RESP 16; TEMP 36.4; O2SAT 100
--- NOTE | 2018-12-07 06:00 | DI.ECHO.S_ITS ---
[facility] +---------+ [facility] +---------+ : : [address] : : : : [id number] : : : : Phone: [phone] Echocardiogram Report + + :Name: GUICHO TO Study Date: 12/07/2018 Height: 70 in : :[facility] Exam Location: IS Weight: 212 lb : : Gender: Male BSA: 2.1 m2 : :: 1985 Age: 33 yrs BP: 103/66 mmHg: :Reason For Study: TIA : : Performed By: Mejia Gonsalez : :Referring: MIREILLE JOHNSON : + + Interpretation Summary 1) Normal left ventricular thickness, size, wall motion, and systolic function (EF 55-60%). 2) Normal right ventricular size and function. 3) No significant valvular abnormalities. 4) Injection of contrast documented no interatrial shunt. 5) No prior Echo available for comparison. Procedure: A two-dimensional transthoracic echocardiogram with color flow and Doppler was performed. The study quality was technically good. There is no prior echocardiogram noted for this patient. A saline contrast injection was performed to assess for cardiac shunting. The patient was in normal sinus rhythm during the exam. Left Ventricle: The left ventricle is normal in size. There is normal left ventricular wall thickness. There is no echo evidence for significant left ventricular outflow tract obstruction. The ejection fraction is estimated to be 55-60%. There are no focal wall motion abnormalities. Right Ventricle: The right ventricle is normal in size and function. Atria: Both atria are normal in size. Injection of contrast documented no interatrial shunt. Mitral Valve: The mitral valve is normal in structure and function. There is systolic anterior motion of the chordal apparatus. There is trace mitral regurgitation. Aortic Valve: The aortic valve is normal in structure and function. The aortic valve is trileaflet. The aortic valve opens well. There is no aortic valve stenosis. No aortic regurgitation is present. Tricuspid Valve: The tricuspid valve is normal in structure and function. No tricuspid regurgitation. Pulmonary artery pressures cannot be estimated because of the lack of a measurable TR jet velocity. Pulmonic Valve: The pulmonic valve is normal in structure and function. There is trace pulmonic regurgitation. Great Vessels: The aortic root is normal size. The dimensions of the ascending aorta are normal. The pulmonary artery is normal size. The IVC is dilated (diameter is greater than 2.1 cm) yet it collapses greater than 50% with a sniff. This suggests a right atrial pressure of 8 mm Hg. Pericardium/ Pleura There is no pericardial effusion. There is no pleural effusion. MMode/2D Measurements & Calculations LVIDd: 5.2 cm LVOT diam: 2.3 cm LVIDs: 4.1 cm Ao root diam: 3.1 cm FS: 21.1 % Aortic Jxn: 2.8 cm EPSS: 0.70 cm asc Aorta Diam: 3.1 cm IVSd: 0.64 cm Ao Arch Diam (Prox Trans): 2.4 cm LVPWd: 0.89 cm LV harris. diameter/BSA (cm/m^2): 2.4 LV sys. diameter/BSA (cm/m^2): 1.9 LA dimension: 3.6 cm RA long axis: 5.0 cm LA A2 area: 19.7 cm2 RA area: 16.2 cm2 LA A4 area: 23.5 cm2 RA vol: 44.2 ml LA length (vol): 6.3 cm RA : 20.7 ml/m2 LA vol: 62.6 ml IVC diam: 2.5 cm LA vol index: 29.3 ml/m2 Doppler Measurements & Calculations Ao V2 max: 134.2 cm/sec LVOT Max Stephane: 105.9 cm/sec Ao V2 mean: 105.0 cm/sec LV V1 max P.5 mmHg Ao max P.2 mmHg LV V1 VTI: 23.2 cm Ao mean P.7 mmHg ALFREDO(I,D): 3.3 cm2 Ao V2 VTI: 29.1 cm ALFREDO(V,D): 3.2 cm2 sev ratio: 0.80 ALFREDO indexed to BSA (cm^2/m^2): 1.5 MV E max stephane: 70.5 cm/sec PA V2 max: 73.4 cm/sec MV A max stephane: 52.7 cm/sec PA V2 mean: 56.1 cm/sec MV E/A: 1.3 PA mean P.3 mmHg Med Peak E' Stephane: 9.7 cm/sec PA pr(Accel): 19.1 mmHg E/E' med: 7.3 PA Accel Time: 0.12 sec Lat Peak E' Stephane: 14.4 cm/sec E/E' lat: 4.9 E/e' average: 6.1 MV dec time: 0.25 sec SV(LVOT): 95.7 ml Reading Physician:01:00 PM
[2018-12-07 06:56] LABS: Cholesterol 155 mg/dL (140-199); HDL Cholesterol 63 mg/dL (40-60); LDL Cholesterol Calculated 78 mg/dL (<100); Triglycerides 71 mg/dL (35-150); VLDL Cholesterol Calculated 14 mg/dL (2-30)
[2018-12-07 08:00] VITALS: BP 103/66; PULSE 60; RESP 16; TEMP 36.8; O2SAT 100
[2018-12-07] MEDS: ASPIRIN EC 81 MG TABLET PO (08:32)
[2018-12-07 12:00] VITALS: BP 117/59; PULSE 55; RESP 16; TEMP 36.7; O2SAT 100
[2018-12-07 13:47] LABS: Thyroid Stimulating Hormone 4.24 uIU/mL (0.47-4.68)
--- NOTE | 2018-12-07 14:07 | CM.DANOTE ---
Addendum entered by Amalia Woodson LPN 12/07/18 15:48: update yet in EMR. Will plan to check in tomorrow morning and follow prn for any d/c needs. Original Note: Discharge Planning/Care Management DCP: assessment: case received, EMR reviewed and discussed in Team Rounds. Pt is a 33 year old female who admitted last evening to care of the hospitalist team. He has been seen by his physician at the [facility] and was advised to present to the ER for further assessment. Dr. Christina discussed case in Rounds, said her understanding is that pt's symptoms had all resolved and she planned to d/c him home today. She said PT/OT/BREAKER BOSS were not indicated at this point. Dr. Christina's note is not yet available. staff respiratory therapist state tests are still pending...will follow as more is known. CM Discharge Assessment Start: 12/07/18 14:05 Freq: Status: Active Protocol: Document 12/07/18 14:06 ITV (Rec: 12/07/18 14:07 ITV [id number]) Discharge Planning Assessment Advance Directives? No History Provided By Medical Record Household Members none Independent with ADL's Yes Is patient alert and oriented? Yes Review Status In Process
--- NOTE | 2018-12-07 15:48 | P.DS_ITS ---
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 Associated symptoms include headache and RUE numbness and weakness. RUE changes noted to be present for a period of 3 weeks, progressively worsening. Patient reported sitting and working at a computer at approximately 2:00 p.m. on 12/06/2018. At that time he has noticed right-sided tingling and decrease of sensation. Over the next hour and a half numbness and tingling have progressed and have become bothersome. Reported difficulty with smiling, which he attributed to right- sided weakness. [place] as if his face had a right-sided droop. Reported change in cognition, specifically difficulty with thinking what he wanted to say and word-finding. Also noted slurred speech. Reported tightness in his throat and difficulty swallowing. Noted taking a drink in having difficulty managing contents. Denied wheezing and stridor. At time of the event denied presence of a headache. No change in vision, double vision, or scotoma. Denied chest pain, palpitations, dizziness, lightheadedness, or shortness of breath. Denied difficulty with balance or trouble walking; however, states that he has failed balance test when seen by the physician at the [facility]. Patient noted leaning to the right when he was asked to stand upright with eyes closed. On his way to the ED patient developed a headache. Headache was localized to the right frontal aspect of the head. There was no radiation behind the eye or to the posterior aspect of the occiput. No similar events in the past. Patient has been suffering from right upper extremity pain and paresthesia over the past 3 weeks. At the time of the event he did not endorse presence of pain or pa resthesia of right upper extremity. Aforementioned neurological symptoms have resolved between 3-4 hours by report. Patient recently started on gabapentin and meloxicam. Has taken his 1st dose of gabapentin prior to bedtime on 12/05/2018. Reports drinking 1-2 beers daily. Last drink on the evening of 12/05/2018. Denied current or prior history of tobacco, marijuana, or recreational drug use. Denied prior head injury. Denied history of seizures. Denied history of migraines, chronic headaches or vertigo. Patient reported being obese majority of his life until 10 years ago, at that time he had 100 lb weight loss in 9 months. Noted lifelong episodes of symptomatic hypoglycemia, which he manages with routine dietary regime. Denied history of hypertension, dyslipidemia, heart disease, neurological disorders, thyroid problems, or thrombosis. Family history is significant for neurological disease in multiple family members with symptoms of gait abnormality, memory loss, tremor (onset in the 50s). He notes that there was no definitive diagnosis to date of potential neurological disorder. No definitive diagnosis of MS or Parkinson's. In fact for members of his family are undergoing a research study and currently undergoing genetic testing. In regard to right upper extremity paresthesia. Patient reports prior history of nerve she tumor resection, 2016. Report developing intermittent arm discomfort in shooting pain 5-6 months after surgical procedure. He has not taken any medications or had any interventions for this phenomenon. Three weeks ago patient was working on breaking up some rocks. Specifically reports using 45 lb metal pole and working 4 hours, fairly continuously, to breakup the rocks. Reports presence of muscle fatigue the following day, worse in the right upper extremity than the left. Within 48 hours reports having intermittent periods of paresthesia, weakness, and fairly consistent degree of discomfort which has persisted for the past 3 weeks. The aforementioned anomaly is noted to be positional. Worse when patient lays on his back and goes completely away when sitting upright. Patient notes pain to be worse at night. Two days ago he was seen and evaluated by a primary care physician. At that time he was prescribed meloxicam and gabapentin. Discharge Providers Date of admission: 12/06/18 20:51 Discharge Date: 12/07/18 Consults: 12/06/18 21:42 Consult to Discharge Planning Routine Comment: Discharge provider: Hiral Christnia MD Summary Hospital Course: ED presentation and work-up WBC 8.0 Hgb 14.5 Plt 267 Na 141 K 3.6 Cl 102 Ca 9.4 Alb 4.7 Glu 82 CO2 27 BUN 15 Cr 0.9 BUN/Cr 16.7 T. Bili 0.5 AST 36 ALT [address] Head, unremarkable for acute intracranial masses or hemorrhage. CTA Head, unremarkable - No evidence of acute stroke, hemorrhage or mass. No stenoses, aneurysms, or occlusion. No focal filling defects. CTA Neck, unremarkable Carotid system: The great vessels demonstrate a conventional anatomy as they arise from the aortic arch. The origins of the common carotid arteries appear patent. The common carotid arteries demonstrate normal caliber and courses. The bifurcation regions are both widely patent. The internal carotid arteries demonstrate normal calibers and courses. Posterior circulation: The origins of the vertebral arteries both appear widely patent. The more superior extracranial portions of both vertebral arteries also demonstrate normal courses and calibers. They join to form a normal appearing basilar artery. Brain MRI, negative brain MRI, no evidence of acute stroke, hemorrhage, or mass; normal appearance of brain parenchyma. While patient was in ED, his symptoms have resolved completely, With exception of right upper extremity paresthesias, which patient had at baseline. The above workup was done, and patient was noted to have no CVA. He was admitted for observation on telemetry, which was unremarkable. Echo was performed which revealed: 1) Normal left ventricular thickness, size, wall motion, and systolic function (EF 55-60%). 2) Normal right ventricular size and function. 3) No significant valvular abnormalities. 4) Injection of contrast documented no interatrial shunt. Lipid Panel revealed triglycerides 71, cholesterol 155, LDL 78, HDL 63. TSH was 4.24. Hemoglobin A1c was 4.7. Patient continued to do well over the course of hospitalization. As there was no evidence CVA, the patient was deemed to have had a TIA event. Because lipid panel, TSH, and hemoglobin A1c were all normal, patient did not require risk factor modifications. Patient will however go home on aspirin 81 mg p.o. daily and is to follow up with his primary care doctor within 1-2 weeks of discharge. Status at Discharge Cognitive/behavioral status at discharge: oriented Functional status at discharge: independent ambulation Overall status at discharge: patient is back to baseline Time Spent with Patient Greater than 30 minutes Exam Vital Signs (past 8 hours): - 12/07/18 08:00 12/07/18 12:00 Temperature 98.3 F 98.1 F Pulse Rate 60 55 L Respiratory Rate 16 16 Blood Pressure 103/66 117/59 L Pulse Oximetry 100 100 Oxygen Delivery Method Room Air Oxygen Flow Rate 0 Narrative Exam Narrative: Narrative: Constitutional: NAD, NIH stroke scale of 1 Neurologic: AOx3, no focal neurological deficits, no facial asymmetry or unilateral weakness Head: NC, AT Eyes: PERRL, EOMI, Ears: external ears normal, no otorrhea Nose: external nose normal, no rhinorrhea or epistaxis Throat: MMM, oropharynx w/o exudate Neck: no masses, lymphadenopathy, or JVD Chest / Respiratory: equal chest rise, unlabored respiratory effort, no tachypnea, CTAB Heart / CV: S1S2, no murmur Abdomen / GI: round, NT, ND, + BS, no organomegaly : no suprapubic tenderness, no CVA Peripheral / Vascular: warm to touch, DP and PT pulses palpable, no edema Musc: full ROM of upper and lower extremities, adequate muscle tone and bulk RLE mild weakness, 4/5 (chronic, as per patient) RUE mild weakness, 4/5 (chronic, as per patient) Objective Labs Result Diagrams: 12/06/18 17:30 12/06/18 17:30 Labs: Laboratory Results - last 24 hr 12/06/18 12/06/18 12/06/18 17:30 17:30 17:30 WBC 8.0 RBC 4.89 Hgb 14.5 Hct 42.8 MCV 87.6 MCH 29.7 MCHC 33.9 RDW 13.5 Plt Count 267 Neut % (Auto) 57.8 Lymph % (Auto) 30.4 [place] % (Auto) 10.3 Eos % (Auto) 0.9 L Baso % (Auto) 0.6 Neut # (Auto) 4600 Lymph # (Auto) 2400 [place] # (Auto) 800 Eos # (Auto) 100 Baso # (Auto) 0 Sodium 141 Potassium 3.6 Chloride 102 Carbon Dioxide 27 BUN 15 Creatinine 0.90 Estimated GFR > 60.0 BUN/Creatinine Ratio 16.7 Glucose 82 Hemoglobin A1c 4.7 Calcium 9.4 Total Bilirubin 0.5 AST 36 ALT 40 Alkaline Phosphatase 51 Total Protein 7.6 Albumin 4.7 Globulin 2.9 Albumin/Globulin Ratio 1.6 Triglycerides Cholesterol LDL Cholesterol, Calc VLDL Cholesterol HDL Cholesterol TSH 12/07/18 12/07/18 06:24 06:24 WBC RBC Hgb Hct MCV MCH MCHC RDW Plt Count Neut % (Auto) Lymph % (Auto) [place] % (Auto) Eos % (Auto) Baso % (Auto) Neut # (Auto) Lymph # (Auto) [place] # (Auto) Eos # (Auto) Baso # (Auto) Sodium Potassium Chloride Carbon Dioxide BUN Creatinine Estimated GFR BUN/Creatinine Ratio Glucose Hemoglobin A1c Calcium Total Bilirubin AST ALT Alkaline Phosphatase Total Protein Albumin Globulin Albumin/Globulin Ratio Triglycerides 71 Cholesterol 155 LDL Cholesterol, Calc 78 VLDL Cholesterol 14 HDL Cholesterol 63 H TSH 4.24 Discharge Plan Discharge Plan Patient Disposition: Home Discharge Med Rec/Prescriptions Prescriptions: New aspirin 81 mg tablet,delayed release (DR/EC) 81 mg PO DAILY Qty: 30 RF: 0 Continued meloxicam 15 mg PO QAM RF: 0 Neurontin 300 mg PO ONCE HS RF: 0 Visit Report/Discharge Packet Instructions: DI for Transient Ischemic Attack Discharge Data Attending Provider: Obdulio Ramon Admit Date/Time: 12/06/18 20:51
--- NOTE | 2018-12-07 16:48 | PC.NURSE ---
Discharge /Evening Shift Note- Patient alert and oriented and able to make needs known to staff. Patient discharged home. Discharge paperwork and instructions reviewed with patient and signed. New Rx provided. IV line removed and Tele Monitor disconnected and leads removed. patient packed up all personal belongings and rechecked room. Patient left via wheelchair to private car with all personal belongings at 1640.
== END 2018-12-07 16:40 | disposition home or self-care (01) ==
LOC: ED 20:50 → AC 20:54
PROVIDERS: Emergency Medicine; Admitting Provider Nurse Practitioner Gerontology; Emergency Provider Emergency Medicine; Visit Provider Nurse Practitioner Gerontology
DX: R20.0 Anesthesia of skin (principal); R51 Headache; R53.1 Weakness
CPT/HCPCS: 36415; 36591; 70450; 70496; 70498; 70551; 80053; 80061; 83036; 84443; 85025; 93005; 93010; 93041; 93306; 96360; 99285; G0378; Q9967